=== PATIENT | female | born 1990 | race Caucasian/White ===

== ENCOUNTER 2019-07-07 19:01 | Emergency (ER) | payer OTHER ==
[2019-07-07 19:23] VITALS: BP 111/65; PULSE 89; TEMP 97.9; BMI 33.5
[2019-07-07 20:19] LABS: BASO % 0.6 % (0-2.0); EOS % 1.5 % (0-4.5); HEMATOCRIT 36.6 % (32.4-45.2); HEMOGLOBIN 12.2 GM/dL (10.7-15.3); LYMPH % 27.9 % (8-40); MCH 30.4 pg (25.7-33.7); MCHC 33.4 g/dl (32.0-36.0); MEAN CELL VOLUME 90.8 fl (80-96); MONO % 9.4 % (3.8-10.2); NEUT % 60.6 % (42.8-82.8); PLATELET COUNT 284 K/MM3 (134-434); RBC 4.03 M/mm3 (3.60-5.2); RDW 14.8 % (11.6-15.6); WHITE BLOOD COUNT 8.5 K/mm3 (4.0-10.0)
--- NOTE | 2019-07-07 20:46 | PDOC ---
History of Present Illness <Celeste Boo - Last Filed: 07/07/19 21:31> - History of Present Illness Initial Comments: Shabana Colby is a 29 y/o female with no significant PMH, A1 @ 9 weeks, presenting today with lower abdominal pain and vaginal bleeding that started this afternoon. Reports that the pain is intermittent and sharp. No pain radiation. Denies nausea/vomiting. Denies pain radiation. Denies upper abdominal pain. Denies dysuria, but reports that urinating worsens the pain in her lower abdomen. Denies headache/dizziness. Denies chest pain/shortness of breath. Denies lower extremity swelling. LNMP: beginning of May SexualHx: sexually active with 1 male partner, but that partner is not monogamous <Stephane Cole - Last Filed: 07/07/19 21:57> - General Chief Complaint: Vaginal Bleeding Stated Complaint: W VAGINAL BLEEDING Time Seen by Provider: 07/07/19 19:42 Past History <EmaCelesteman Christensen - Last Filed: 07/07/19 21:31> - Past Medical History Asthma: No Cancer: No Cardiac Disorders: No COPD: No Diabetes: No HTN: No Psychiatric Problems: Yes (depression/anxiety) Seizures: No Thyroid Disease: No - Immunization History Immunization Up to Date: Yes - Psycho Social/Smoking Cessation Hx Smoking History: Never smoked Have you smoked in the past 12 months: No Number of Cigarettes Smoked Daily: 0 Hx Alcohol Use: No Drug/Substance Use Hx: No Hx Substance Use Treatment: No <Stephane Cole - Last Filed: 07/07/19 21:57> - Past Medical History Allergies/Adverse Reactions: Allergies Allergy/AdvReac Type Severity Reaction Status Date / Time Penicillins Allergy Mild Rash Verified 07/07/19 19:22 Home Medications: Ambulatory Orders Sulfamethoxazole/Trimethoprim [Bactrim Ds -] 1 tab PO BID #14 tablet 07/07/19 Review of Systems - Review of Systems Comments:: GENERAL/CONSTITUTIONAL: No fever or chills. No weakness._ HEAD, EYES, EARS, NOSE AND THROAT: No change in vision. No change in hearing. No sore throat._ CARDIOVASCULAR: No chest pain or shortness of breath_ RESPIRATORY: Denies cough, hemoptysis_ GASTROINTESTINAL: No nausea, vomiting, diarrhea or constipation. Reports lower abdominal pain. GENITOURINARY: No dysuria, frequency, or change in urination. Reports vaginal bleeding. MUSCULOSKELETAL: No joint or muscle swelling or pain. No neck or back pain._ SKIN: No rash_ NEUROLOGIC: No headache, vertigo, loss of consciousness, or change in strength/sensation._ ENDOCRINE: No increased thirst. No abnormal weight change_ HEMATOLOGIC/LYMPHATIC: No anemia, easy bleeding, or history of blood clots._ ALLERGIC/IMMUNOLOGIC: No hives or skin allergy._ <Stephane Cole - Last Filed: 07/07/19 21:57> *Physical Exam - Vital Signs Last Vital Signs Temp Pulse Resp BP Pulse Ox 97.9 F 89 18 111/65 100 07/07/19 19:20 07/07/19 19:20 07/07/19 19:20 07/07/19 19:20 07/07/19 19:20 <Celeste Boo - Last Filed: 07/07/19 21:31> - Vital Signs Last Vital Signs Temp Pulse Resp BP Pulse Ox 97.9 F 89 18 111/65 100 07/07/19 19:20 07/07/19 19:20 07/07/19 19:20 07/07/19 19:20 07/07/19 19:20 - Physical Exam GENERAL: Awake, alert, and oriented to person/place/time, in no acute distress_ HEAD: No signs of trauma, normocephalic, atraumatic _ EYES: PERRLA, EOMI, sclera anicteric, conjunctiva clear_ ENT: Hearing grossly normal, nares patent, oropharynx clear without exudates. No uvular deviation. Moist mucosa_ NECK: Normal ROM, supple, no lymphadenopathy, JVD, or masses_ LUNGS: No distress, speaks in full sentences, clear to auscultation bilaterally _ HEART: Regular rate and rhythm, normal S1 and S2, no murmurs appreciated, peripheral pulses normal and equal bilaterally._ ABDOMEN: Soft, TTP BLQ right > left, normoactive bowel sounds. No guarding, no rebound. No masses_ EXTREMITIES: Normal inspection, Normal range of motion, no edema. No clubbing or cyanosis_ NEUROLOGICAL: Cranial nerves II through XII grossly intact. Normal speech, normal gait, no focal sensorimotor deficits _ SKIN: Warm, Dry, normal turgor, no rashes or lesions noted_ PELVIC: Normal external exam. Milky white discharge in the vaginal vault. No obvious bleeding. Os closed. Mild cervical tenderness. No adnexal tenderness. <Stephane Cole - Last Filed: 07/07/19 21:57> ED Treatment Course - LABORATORY CBC & Chemistry Diagram: 07/07/19 20:15 07/07/19 20:15 - ADDITIONAL ORDERS Additional order review: Laboratory Results 07/07/19 07/07/19 20:15 20:15 Sodium 137 Potassium 3.7 Chloride 103 Carbon Dioxide 29 Anion Gap 6 L BUN 13.0 Creatinine 0.6 Est GFR (CKD-EPI)AfAm 143.77 Est GFR (CKD-EPI)NonAf 124.04 Random Glucose 86 Calcium 8.7 Total Bilirubin 0.1 L AST 12 L ALT 14 Alkaline Phosphatase 59 Total Protein 7.3 Albumin 3.1 L Beta HCG, Quant 92198.9 Urine Color Yellow Urine Appearance Cloudy Urine pH 6.5 D Ur Specific Thatcher 1.023 Urine Protein Negative Urine Glucose (UA) Negative Urine Ketones Negative Urine Blood Negative Urine Nitrite Negative Urine Bilirubin Negative Urine Urobilinogen 0.2 Ur Leukocyte Esterase Trace Urine WBC (Auto) 17 Urine RBC (Auto) 2 Urine Casts (Auto) 10 U Epithel Cells (Auto) 8.6 Urine Bacteria (Auto) 1074.1 07/07/19 20:15 RBC 4.03 MCV 90.8 MCHC 33.4 RDW 14.8 MPV 8.0 Neutrophils % 60.6 Lymphocytes % 27.9 D Monocytes % 9.4 Eosinophils % 1.5 D Basophils % 0.6 <Celeste Boo - Last Filed: 07/07/19 21:31> - LABORATORY CBC & Chemistry Diagram: 07/07/19 20:15 07/07/19 20:15 - ADDITIONAL ORDERS Additional order review: 07/07/19 20:15 RBC 4.03 MCV 90.8 MCHC 33.4 RDW 14.8 MPV 8.0 Neutrophils % 60.6 Lymphocytes % 27.9 D Monocytes % 9.4 Eosinophils % 1.5 D Basophils % 0.6 - RADIOLOGY Radiology Studies Ordered: Category Date Time Status <14WKS US [US] Stat Ultrasound 07/07/19 19:59 Taken <Stephane Cole - Last Filed: 07/07/19 21:57> Medical Decision Making - Medical Decision Making 07/07/19 20:30 29F A1 @ 9 weeks presenting with lower abdominal pain worse on the right side and vaginal bleeding. -cbc, cmp -T+S -TVUS -beta hcg quant -ua, ucx -STI testing 07/07/19 21:27 TVUS shows single viable IUP at 9 weeks 2 days. No other findings. 07/07/19 21:38 Labs reviewed. Laboratory Last Values WBC 8.5 K/mm3 (4.0-10.0) 07/07/19 20:15 RBC 4.03 M/mm3 (3.60-5.2) 07/07/19 20:15 Hgb 12.2 GM/dL (10.7-15.3) 07/07/19 20:15 Hct 36.6 % (32.4-45.2) 07/07/19 20:15 MCV 90.8 fl (80-96) 07/07/19 20:15 MCH 30.4 pg (25.7-33.7) 07/07/19 20:15 MCHC 33.4 g/dl (32.0-36.0) 07/07/19 20:15 RDW 14.8 % (11.6-15.6) 07/07/19 20:15 Plt Count 284 K/MM3 (134-434) D 07/07/19 20:15 MPV 8.0 fl (7.5-11.1) 07/07/19 20:15 Absolute Neuts (auto) 5.2 K/mm3 (1.5-8.0) 07/07/19 20:15 Neutrophils % 60.6 % (42.8-82.8) 07/07/19 20:15 Lymphocytes % 27.9 % (8-40) D 07/07/19 20:15 Monocytes % 9.4 % (3.8-10.2) 07/07/19 20:15 Eosinophils % 1.5 % (0-4.5) D 07/07/19 20:15 Basophils % 0.6 % (0-2.0) 07/07/19 20:15 Nucleated RBC % 0 % (0-0) 07/07/19 20:15 Sodium 137 mmol/L (136-145) 07/07/19 20:15 Potassium 3.7 mmol/L (3.5-5.1) 07/07/19 20:15 Chloride 103 mmol/L (98-107) 07/07/19 20:15 Carbon Dioxide 29 mmol/L (21-32) 07/07/19 20:15 Anion Gap 6 MMOL/L (8-16) L 07/07/19 20:15 BUN 13.0 mg/dL (7-18) 07/07/19 20:15 Creatinine 0.6 mg/dL (0.55-1.3) 07/07/19 20:15 Est GFR (CKD-EPI)AfAm 143.77 07/07/19 20:15 Est GFR (CKD-EPI)NonAf 124.04 07/07/19 20:15 Random Glucose 86 mg/dL (74-106) 07/07/19 20:15 Calcium 8.7 mg/dL (8.5-10.1) 07/07/19 20:15 Total Bilirubin 0.1 mg/dL (0.2-1) L 07/07/19 20:15 AST 12 U/L (15-37) L 07/07/19 20:15 ALT 14 U/L (13-61) 07/07/19 20:15 Alkaline Phosphatase 59 U/L (45-117) 07/07/19 20:15 Total Protein 7.3 g/dl (6.4-8.2) 07/07/19 20:15 Albumin 3.1 g/dl (3.4-5.0) L 07/07/19 20:15 Beta HCG, Quant 32176.9 mIU/ml 07/07/19 20:15 Urine Color Yellow 07/07/19 20:15 Urine Appearance Cloudy 07/07/19 20:15 Urine pH 6.5 (5.0-8.0) D 07/07/19 20:15 Ur Specific Thatcher 1.023 (1.010-1.035) 07/07/19 20:15 Urine Protein Negative (NEGATIVE) 07/07/19 20:15 Urine Glucose (UA) Negative (NEGATIVE) 07/07/19 20:15 Urine Ketones Negative (NEGATIVE) 07/07/19 20:15 Urine Blood Negative (NEGATIVE) 07/07/19 20:15 Urine Nitrite Negative (NEGATIVE) 07/07/19 20:15 Urine Bilirubin Negative (NEGATIVE) 07/07/19 20:15 Urine Urobilinogen 0.2 mg/dL (0.2-1.0) 07/07/19 20:15 Ur Leukocyte Esterase Trace (NEGATIVE) 07/07/19 20:15 Urine WBC (Auto) 17 /hpf (0-5) 07/07/19 20:15 Urine RBC (Auto) 2 /hpf (0-4) 07/07/19 20:15 Urine Casts (Auto) 10 /lpf (0-8) 07/07/19 20:15 U Epithel Cells (Auto) 8.6 /HPF (0-5/HPF) 07/07/19 20:15 Urine Bacteria (Auto) 1074.1 /hpf (NEGATIVE) 07/07/19 20:15 Pt reassessed. Reports feeling much better. Will plan to d/c home with bactrim BID 1 week for UTI in . All questions answered. Return precautions given. Pt will f/u with her OBGYN. Pt verbalized understanding and agreement with plan. <Stephane Cole - Last Filed: 07/07/19 21:57> Discharge - Discharge Information Problems reviewed: Yes - Admission No <Celeste Boo - Last Filed: 07/07/19 21:31> - Discharge Information Problems reviewed: Yes - Admission No <Stephane Cole - Last Filed: 07/07/19 21:57> - Discharge Information Clinical Impression/Diagnosis: Vaginal bleeding UTI in Qualifiers: Trimester: first trimester Qualified Code(s): O23.41 - Unspecified infection of urinary tract in , first trimester Condition: Improved Disposition: HOME - Additional Discharge Information Prescriptions: Sulfamethoxazole/Trimethoprim [Bactrim Ds -] 1 tab PO BID #14 tablet - Follow up/Referral Referrals: Samm Nicole MD [Staff Physician] - Adali Matamoros MD [Staff Physician] - ON STAFF,NOT [Primary Care Provider] - - Patient Discharge Instructions Patient Printed Discharge Instructions: DI for Urinary Tract Infection (UTI), DI for Vaginal Bleeding During Additional Instructions: Please take Bactrim 1 tab twice per day for 1 week. Please keep your follow up appointments with your OBGYN (referral provided here). If you experience any new, worsening, or concerning symptoms, including severe abdominal pain, dizziness, severe nausea/vomiting, or any other concerns, please return to the emergency department. - Post Discharge Activity
[2019-07-07 20:50] LABS: EPI CELLS 8.6 /HPF (0-5/HPF); HYALINE CASTS 10 /lpf (0-8); PH,URINE 6.5 (5.0-8.0); URINE APPEARANCE CLOUDY; URINE BACTERIA 1074.1 /hpf (NEGATIVE); URINE BILIRUBIN NEGATIVE (NEGATIVE); URINE COLOR YELLOW; URINE GLUCOSE (UA) NEGATIVE (NEGATIVE); URINE KETONE NEGATIVE (NEGATIVE); URINE LEUK ESTERASE TRACE (NEGATIVE); URINE NITRITE NEGATIVE (NEGATIVE); URINE PROTEIN NEGATIVE (NEGATIVE); URINE RBC 2 /hpf (0-4); URINE UROBILINOGEN 0.2 mg/dL (0.2-1.0); URINE WBC 17 /hpf (0-5)
--- NOTE | 2019-07-07 20:52 | PDOC ---
Attending Attestation - Resident Resident Name: Stephane Cole - ED Attending Attestation I have performed the following: I have examined & evaluated the patient, The case was reviewed & discussed with the resident, I agree w/resident's findings & plan - HPI HPI: 07/07/19 20:49 Shabana Colby is a 29 y/o female with no significant PMH, A1 @ 9 weeks, presenting today with lower abdominal pain (right>left) and vaginal bleeding. vaginal spotting this morning, has since stopped sexually active with one partner, but she states that partner has had unprotected sex with two prior women. 07/07/19 20:51 - Physicial Exam PE: 07/07/19 20:50 Agree with the resident's HPI and PE as documented in the electronic medical record. NAD, well appearing, EOMI, PERRL, nl conjunctiva, anicteric; neck supple. lungs clear, RRR, abdomen soft nontender. no rebound, guarding. Back nontender. COLE x4, no focal neuro deficits. No peripheral edema. normal color for ethnicity, WWP. pelvic exam performed by me at the request of the patient. normal external genitalia, no lesions, very uncomfortable with exam, thick white discharge vaginal vault, no CMT, no adnexal tenderness. Smooth and pink cervix, closed. - Medical Decision Making 07/07/19 20:50 Vital Signs Temp Pulse Resp BP Pulse Ox 97.9 F 89 18 111/65 100 07/07/19 19:20 07/07/19 19:20 07/07/19 19:20 07/07/19 19:20 07/07/19 19:20 DDx female VB: ectopic , miscarriage, demise, subchorionic hematoma, retained POC, normal first trimester bleeding, UTI in in . Fibroid uterus, vaginitis, infection, electrolyte/metabolic derangements, anemia STI - GC/chlamydia, trichomonas given her sx, white discharge and discomfort with exam, some limitations, pt defers endocervical swab. elects for urine pcr testing of STI Rh positive, no rhogam indicated VS wnl, normotensive, no tachy or hypoxia/respiratory distress. abdomen benign on reeval and no peritoneal findings, no VB here, controlled Beta hcg >75308 TVUS WITH SINGLE live IUP at 9 weeks seen. UTI in seen, treat with bactrim course x 1 week. pt instructed to f/u STI testing. placed for call back. safe sex practices, partner testing encouraged. OB followup, bleeding precautions; return to ED if persistent and heavy vaginal bleeding, persistent pelvic pain not relieved by your prescribed medications, dizziness, shortness of breath, new and persistent fevers, other foul smelling discolored vaginal discharge, or for any other concerns. 07/07/19 20:52 07/07/19 21:29 07/07/19 21:32
[2019-07-07 21:11] LABS: ALBUMIN 3.1 g/dl (3.4-5.0); BILIRUBIN,TOTAL 0.1 mg/dL (0.2-1); CALCIUM 8.7 mg/dL (8.5-10.1); CREATININE 0.6 mg/dL (0.55-1.3); POTASSIUM 3.7 mmol/L (3.5-5.1); TOT PROT 7.3 g/dl (6.4-8.2)
[2019-07-07] MEDS ORDERED: SULFAMETHOXAZOLE/TRIMETHOPRIM 800MG/160MG D.S. TABLET PO ONE (21:12)
[2019-07-07] MEDS ORDERED: SULFAMETHOXAZOLE/TRIMETHOPRIM 800MG/160MG D.S. TABLET ONE (21:41)
== END 2019-07-07 21:46 | disposition home or self-care (01) ==
LOC: JER 19:01
DX: O23.41 Unspecified infection of urinary tract in pregnancy, first trimester (principal); N93.9 Abnormal uterine and vaginal bleeding, unspecified; Z88.0 Allergy status to penicillin
CPT/HCPCS: 36415; 76801-TC; 80053; 81003; 84702; 85025; 86850; 86900; 86901; 87086; 87491; 87591; 87661; 99284-25